=== PATIENT | male | born 1970 | race Caucasian/White ===

== ENCOUNTER 2017-03-24 14:29 | Inpatient (IN) | payer OTHER ==
[2017-03-24 16:11] VITALS: BMI 23.6
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
[2017-03-24] MEDS ORDERED: MENTHOL/PHENOL 1 EACH UD MM PRN (18:39)
[2017-03-24] MEDS ORDERED: MAGNESIUM CITRATE 300 ML BOTTLE PO PRN (18:39)
[2017-03-24] MEDS ORDERED: LOPERAMIDE HCL 2 MG CAPSULE PO PRN (18:39)
[2017-03-24] MEDS ORDERED: P-EPHED 60MG/TRIPROLIDI 2.5MG TABLET PO PRN (18:39)
[2017-03-24] MEDS ORDERED: ACETAMINOPHEN 325 MG TABLET (FP) PO PRN (18:39)
[2017-03-24] MEDS ORDERED: MAG HYDROX/AL HYDROX/SIMETH 30 ML UNIT-DOSE CUP PO PRN (18:39)
[2017-03-24] MEDS ORDERED: guaiFENesin/D-METHORPHAN HB 10 ML UNIT-DOSE CUPS PO PRN (18:39)
[2017-03-24] MEDS ORDERED: MAGNESIUM HYDROX 2400MG/30ML ORAL SUSPENSION 30 ML CUP PO PRN (18:39)
[2017-03-24] MEDS ORDERED: NICOTINE 21 MG/24 HOURS TOPICAL PATCH TD PRN (18:39)
[2017-03-24] MEDS ORDERED: ALBUTEROL SO4 18 GM HFA INHALER IH PRN (18:42)
[2017-03-24] MEDS ORDERED: diazePAM 5 MG TABLET PO ONE (19:15)
[2017-03-24] MEDS: METHYL SALICYLATE/MENTHOL OINT 30 GM TUBE TP SCH ×2 (19:38→22:05)
[2017-03-24] MEDS: diazePAM 5 MG TABLET PO SCH (22:04)
[2017-03-24] MEDS: THIAMINE HCL 100 MG TABLET (FP) PO SCH (22:04)
[2017-03-24] MEDS: BUPRENORPHINE/NALOXONE 8 MG/2 MG FILM PACKET SL SCH (22:04)
[2017-03-24] MEDS: CYCLOBENZAPRINE HCL 10 MG TABLET (FP) PO PRN (22:04)
[2017-03-24] MEDS: IBUPROFEN 400 MG TABLET (FP) PO PRN (22:10)
[2017-03-24] MEDS: NICOTINE POLACRILEX 4 MG GUM BC PRN (23:34)
[2017-03-25] MEDS: diazePAM 5 MG TABLET PO PRN ×4 (00:46→17:17)
[2017-03-25 01:59] LABS: URINE APPEARANCE SLCLOUDY; URINE BILIRUBIN NEGATIVE (NEGATIVE); URINE BLOOD NEGATIVE (NEGATIVE); URINE COLOR YELLOW; URINE GLUCOSE (UA) NEGATIVE (NEGATIVE); URINE KETONE NEGATIVE (NEGATIVE); URINE NITRITE NEGATIVE (NEGATIVE); URINE PROTEIN NEGATIVE (NEGATIVE); URINE UROBILINOGEN NEGATIVE mg/dL (0.2-1.0)
[2017-03-25] MEDS: NICOTINE POLACRILEX 4 MG GUM BC PRN ×2 (05:35→12:32)
[2017-03-25] MEDS: diazePAM 5 MG TABLET PO SCH ×3 (05:35→22:07)
[2017-03-25] MEDS: IBUPROFEN 400 MG TABLET (FP) PO PRN (05:37)
[2017-03-25] MEDS: CYCLOBENZAPRINE HCL 10 MG TABLET (FP) PO PRN ×2 (05:37→13:04)
[2017-03-25 10:03] LABS: MCH 30.2 pg (25.7-33.7); MCHC 33.3 g/dl (32.0-35.9); MEAN CELL VOLUME 90.6 fl (80-96); MEAN PLT VOLUME 9.6 fl (7.5-11.1); PLATELET COUNT 254 K/MM3 (134-434); RDW 13.9 % (11.9-15.9); WHITE BLOOD COUNT 7.7 K/mm3 (4.0-10.0)
[2017-03-25] MEDS: PRENATAL VITAMINS W/ FOLIC ACID TABLET (FP) PO SCH (10:10)
[2017-03-25] MEDS: LIDOCAINE 5% TOPICAL PATCH TP SCH (10:10)
[2017-03-25] MEDS: BUPRENORPHINE/NALOXONE 8 MG/2 MG FILM PACKET SL SCH ×2 (10:10→22:07)
[2017-03-25] MEDS: METHYL SALICYLATE/MENTHOL OINT 30 GM TUBE TP SCH ×2 (10:10→22:08)
--- NOTE | 2017-03-25 10:35 | PN ---
S CIWA - CIWA Score Nausea/Vomitin Muscle Tremors: 3 Anxiety: 3 Agitation: 3 Paroxysmal Sweats: 1-Minimal Palms Moist Orientation: 0-Oriented Tacttile Disturbances: 1-Very Mild Itch/Numbness Auditory Disturbances: 1-Very Mild Visual Disturbances: 0-None Headache: 2-Mild CIWA-Ar Total Score: 17 BHS Progress Note (SOAP) Subjective: alert,irritable,anxious,interrupted sleep,tremor,pain in the body and back Objective: 03/25/17 10:32 Vital Signs Temperature 96.4 F L 03/25/17 05:59 Pulse Rate 100 H 03/25/17 05:59 Respiratory Rate 20 03/25/17 05:59 Blood Pressure 150/78 03/25/17 05:59 O2 Sat by Pulse Oximetry (%) ekg nsr,normal ecg 03/25/17 10:33 Laboratory Last Values WBC 7.7 K/mm3 (4.0-10.0) D 03/25/17 07:45 RBC 4.41 M/mm3 (4.00-5.60) 03/25/17 07:45 Hgb 13.3 GM/dL (11.7-16.9) 03/25/17 07:45 Hct 40.0 % (35.4-49) 03/25/17 07:45 MCV 90.6 fl (80-96) 03/25/17 07:45 MCH 30.2 pg (25.7-33.7) 03/25/17 07:45 MCHC 33.3 g/dl (32.0-35.9) 03/25/17 07:45 RDW 13.9 % (11.9-15.9) 03/25/17 07:45 Plt Count 254 K/MM3 (134-434) D 03/25/17 07:45 MPV 9.6 fl (7.5-11.1) 03/25/17 07:45 Urine Color Yellow 03/24/17 18:51 Urine Appearance Slcloudy 03/24/17 18:51 Urine pH 5.0 (5.0-8.0) D 03/24/17 18:51 Ur Specific [place] 1.025 (1.001-1.035) 03/24/17 18:51 Urine Protein Negative (NEGATIVE) 03/24/17 18:51 Urine Glucose (UA) Negative (NEGATIVE) 03/24/17 18:51 Urine Ketones Negative (NEGATIVE) 03/24/17 18:51 Urine Blood Negative (NEGATIVE) 03/24/17 18:51 Urine Nitrite Negative (NEGATIVE) 03/24/17 18:51 Urine Bilirubin Negative (NEGATIVE) 03/24/17 18:51 Urine Urobilinogen Negative mg/dL (0.2-1.0) 03/24/17 18:51 03/25/17 10:33 labs pending Assessment: 03/25/17 10:34 withdrawal symptom Plan: continue detox
[2017-03-25 10:56] LABS: ALBUMIN 3.7 g/dl (3.4-5.0); ALK PHOS 68 U/L (45-117); ANION GAP 5 (8-16); BILIRUBIN,TOTAL 0.4 mg/dL (0.2-1.0); CALCIUM 8.4 mg/dL (8.5-10.1); CO2 28 mmol/L (21-32); CREATININE 0.7 mg/dL (0.7-1.3); GLUCOSE,RANDOM 97 mg/dL (74-106); SGOT/AST 16 U/L (15-37); SGPT/ALT 54 U/L (12-78); TOT PROT 7.1 g/dl (6.4-8.2)
[2017-03-25 11:44] LABS: URINE LEUK ESTERASE Negative (NEGATIVE)
[2017-03-25] MEDS: IBUPROFEN 600 MG TABLET (FP) PO PRN ×2 (13:04→20:28)
--- NOTE | 2017-03-25 13:34 | CONSULT ---
[facility] Psychiatric Consult - Data Date of interview: 03/25/17 Admission source: [facility] Identifying data: One of multiple admissions to [facility] for this 45 y/o male seeking detox treatment on for alcohol,opioid and cocaine dependence.Patient is single without children,homeless,unemployed and supported on SSI/SSD benefits. Substance Abuse History: Confirmed by patient in this session.[facility] report : Smoking history: Current every day smoker. Have you smoked in the past 12 months: Yes. Aproximately how many cigarettes per day: 20. Cigars Per Day: 0. Hx Chewing Tobacco Use: No. Initiated information on smoking cessation: Yes. 'Breaking Loose' booklet given: 03/24/17. - Substance & Tx. History. Hx Alcohol Use: Yes. Hx Substance Use: Yes. Substance Use Type: Alcohol, Cocaine. Hx Substance Use Treatment: Yes (). - Substances Abused. Alcohol. Route: Oral. Frequency: Daily. Amount used: 2 pints vodka. Age of first use: 14. Date of Last Use: 03/24/17. Cocaine. Route: Smoking. Frequency: Daily. Amount used: 100$. Age of first use: 29. Date of Last Use: 03/22/17 Medical History: Hepatitis C,bronchial asthma,seizures (withdrawal-related) and a history of testicular cancer (underwent an orchiectomy in 2007). Psychiatric History: Onset of psychiatric disturbances (2007).History of multiple psychiatric hospitalizations ([facility]).Diagnosed with Schizoaffective Disorder.Chronically non adherent to aftercare.Patient reports a preference for emergency room settings for medications refills.No longer on seroquel (patient stopped on his own) due to intolerable oversedation.Sees the staff psychiatrist at the custodial in [place] for medication management (xanax,suboxone,ambien).Mr Gil denies history of suicide attempts. Physical/Sexual Abuse/Trauma History: No reported history of abuse. Additional Comment: Urine Drug Screen Results: RICKIE-Cocaine.Noted. Mental Status Exam - Mental Status Exam Alert and Oriented to: Time, Place, Person Cognitive Function: Good Patient Appearance: Well Groomed Mood: Hopeful, Euthymic Affect: Appropriate, Normal Range Patient Behavior: Cooperative Speech Pattern: Clear Voice Loudness: Normal Thought Process: Goal Oriented Thought Disorder: Not Present Hallucinations: Denies Suicidal Ideation: Denies Homicidal Ideation: Denies Insight/Judgement: Poor Sleep: Poorly, Difficulty falling asleep Appetite: Good Muscle strength/Tone: Rigidity Gait/Station: Normal Psychiatric Findings - Problem List ([place] 1, 2,3) (1) Alcohol dependence with uncomplicated withdrawal Current Visit: Yes Status: Acute (2) Opioid dependence with withdrawal Current Visit: No Status: Acute (3) Cocaine dependence Current Visit: Yes Status: Acute (4) Nicotine dependence Current Visit: Yes Status: Acute Qualifiers: Nicotine product type: cigarettes Substance use status: in withdrawal Qualified Code(s): F17.213 - Nicotine dependence, cigarettes, with withdrawal Comment: . (5) Drug-induced mood disorder Current Visit: Yes Status: Acute (6) Insomnia Current Visit: Yes Status: Acute - Initial Treatment Plan Initial Treatment Plan: Psychoeducation.Detoxification.Sleep hygiene.Medications : remeron 7.5 mg po hs + ambien 10 mg po hs prn.Side effects /benefits of both drugs are discussed with the patient.He agrees with this careplan.Observation.
[2017-03-25] MEDS ORDERED: LIDOCAINE PATCH REMOVAL MC SCH (22:00)
[2017-03-25] MEDS ORDERED: MIRTAZAPINE 15 MG TABLET (FP) PO SCH (22:00)
[2017-03-25] MEDS ORDERED: ZOLPIDEM TARTRATE 5 MG TABLET PO PRN (22:00)
[2017-03-25] MEDS: THIAMINE HCL 100 MG TABLET (FP) PO SCH (22:08)
[2017-03-26] MEDS: IBUPROFEN 600 MG TABLET (FP) PO PRN (02:27)
[2017-03-26] MEDS: CYCLOBENZAPRINE HCL 10 MG TABLET (FP) PO PRN ×2 (02:27→10:13)
[2017-03-26] MEDS: diazePAM 5 MG TABLET PO PRN ×2 (02:29→06:38)
--- NOTE | 2017-03-26 08:28 | PN ---
S CIWA - CIWA Score Nausea/Vomitin Muscle Tremors: 3 Anxiety: 3 Agitation: 2 Paroxysmal Sweats: 1-Minimal Palms Moist Orientation: 0-Oriented Tacttile Disturbances: 1-Very Mild Itch/Numbness Auditory Disturbances: 1-Very Mild Visual Disturbances: 1-Very Mild Sensitivity Headache: 2-Mild CIWA-Ar Total Score: 17 BHS Progress Note (SOAP) Subjective: alert,irritable,anxious,interrupted sleep,tremor,pain in the body and back Objective: 03/26/17 08:28 Vital Signs Temperature 97.3 F L 03/26/17 05:51 Pulse Rate 71 03/26/17 05:51 Respiratory Rate 18 03/26/17 05:51 Blood Pressure 113/78 03/26/17 05:51 O2 Sat by Pulse Oximetry (%) 03/26/17 08:30 Laboratory Last Values WBC 7.7 K/mm3 (4.0-10.0) D 03/25/17 07:45 RBC 4.41 M/mm3 (4.00-5.60) 03/25/17 07:45 Hgb 13.3 GM/dL (11.7-16.9) 03/25/17 07:45 Hct 40.0 % (35.4-49) 03/25/17 07:45 MCV 90.6 fl (80-96) 03/25/17 07:45 MCH 30.2 pg (25.7-33.7) 03/25/17 07:45 MCHC 33.3 g/dl (32.0-35.9) 03/25/17 07:45 RDW 13.9 % (11.9-15.9) 03/25/17 07:45 Plt Count 254 K/MM3 (134-434) D 03/25/17 07:45 MPV 9.6 fl (7.5-11.1) 03/25/17 07:45 Manual Slide Review No Result Required. 03/25/17 07:45 Sodium 139 mmol/L (136-145) 03/25/17 07:45 Potassium 4.4 mmol/L (3.5-5.1) 03/25/17 07:45 Chloride 106 mmol/L (98-107) 03/25/17 07:45 Carbon Dioxide 28 mmol/L (21-32) 03/25/17 07:45 Anion Gap 5 (8-16) L 03/25/17 07:45 BUN 22 mg/dL (7-18) H 03/25/17 07:45 Creatinine 0.7 mg/dL (0.7-1.3) 03/25/17 07:45 Creat Clearance w eGFR > 60 (>60) 03/25/17 07:45 Random Glucose 97 mg/dL (74-106) 03/25/17 07:45 Calcium 8.4 mg/dL (8.5-10.1) L 03/25/17 07:45 Total Bilirubin 0.4 mg/dL (0.2-1.0) 03/25/17 07:45 AST 16 U/L (15-37) D 03/25/17 07:45 ALT 54 U/L (12-78) D 03/25/17 07:45 Alkaline Phosphatase 68 U/L (45-117) 03/25/17 07:45 Total Protein 7.1 g/dl (6.4-8.2) 03/25/17 07:45 Albumin 3.7 g/dl (3.4-5.0) 03/25/17 07:45 Urine Color Yellow 03/24/17 18:51 Urine Appearance Slcloudy 03/24/17 18:51 Urine pH 5.0 (5.0-8.0) D 03/24/17 18:51 Ur Specific [place] 1.025 (1.001-1.035) 03/24/17 18:51 Urine Protein Negative (NEGATIVE) 03/24/17 18:51 Urine Glucose (UA) Negative (NEGATIVE) 03/24/17 18:51 Urine Ketones Negative (NEGATIVE) 03/24/17 18:51 Urine Blood Negative (NEGATIVE) 03/24/17 18:51 Urine Nitrite Negative (NEGATIVE) 03/24/17 18:51 Urine Bilirubin Negative (NEGATIVE) 03/24/17 18:51 Urine Urobilinogen Negative mg/dL (0.2-1.0) 03/24/17 18:51 Ur Leukocyte Esterase Negative (NEGATIVE) 03/24/17 18:51 RPR Titer Nonreactive (NONREACTIVE) 03/25/17 07:45 Assessment: 03/26/17 08:31 withdrawal symptom Plan: continue detox
[2017-03-26] MEDS ORDERED: hydrOXYzine PAMOATE 50 MG CAPSULE (FP) PO PRN (08:53)
[2017-03-26 09:29] VITALS: BP 129/82; PULSE 102; TEMP 96
[2017-03-26] MEDS ORDERED: diazePAM 5 MG TABLET PO SCH (10:00)
[2017-03-26] MEDS: METHYL SALICYLATE/MENTHOL OINT 30 GM TUBE TP SCH (10:00)
[2017-03-26] MEDS: LIDOCAINE 5% TOPICAL PATCH TP SCH (10:00)
[2017-03-26] MEDS: PRENATAL VITAMINS W/ FOLIC ACID TABLET (FP) PO SCH (10:09)
[2017-03-26] MEDS: BUPRENORPHINE/NALOXONE 8 MG/2 MG FILM PACKET SL SCH (10:09)
--- NOTE | 2017-03-26 11:31 | PN ---
S Progress Note Note: patient did not want to complete treatment,seen by counselor,signed release ama
--- NOTE | 2017-03-26 11:36 | DS ---
[facility] Detox Discharge Summary Admission Date: 03/24/17 Discharge Date: 03/26/17 - History Present History: Alcohol Dependence Additional Comments: patient did not want to complete treatment,seen by counselor,signed release ama Pertinent Past History: asthma chronic back pain hepatitis c weight loss encounter suboxone maintenance therapy - Physical Exam Results Vital Signs: Vital Signs Temperature 96 F L 03/26/17 09:29 Pulse Rate 102 H 03/26/17 09:29 Respiratory Rate 16 03/26/17 09:29 Blood Pressure 129/82 03/26/17 09:29 O2 Sat by Pulse Oximetry (%) Pertinent Admission Physical Exam Findings: withdrawal finding - Medication Discharge Medications: Ambulatory Orders Quetiapine Fumarate [Seroquel -] 300 mg PO HS 02/24/16 Albuterol Sulfate Inhaler - [Ventolin HFA Inhaler -] 2 inh IH Q4H PRN #1 inhaler 04/22/16 Bupropion HCl [Wellbutrin Xl -] 150 mg PO DAILY #30 tab.sr.24h 04/22/16 Mirtazapine [Remeron -] 30 mg PO HS #30 tablet 04/22/16 Buprenorphine HCl/Naloxone HCl [Suboxone 8 mg-2 mg Sl Tablets] 1 each SL BID Buprenorphine/Naloxone [Suboxone 8Mg/2Mg Sl Film -] 1 each SL BID 03/24/17 - Diagnosis (1) Alcohol dependence with uncomplicated withdrawal Current Visit: Yes Status: Acute (2) Nicotine dependence Current Visit: Yes Status: Acute Qualifiers: Nicotine product type: cigarettes Substance use status: in withdrawal Qualified Code(s): F17.213 - Nicotine dependence, cigarettes, with withdrawal (3) Weight loss Current Visit: Yes Status: Acute (4) Asthma Current Visit: Yes Status: Chronic Qualifiers: Asthma severity: mild Asthma persistence: intermittent Asthma complication type: with status asthmaticus Qualified Code(s): J45.22 - Mild intermittent asthma with status asthmaticus (5) Chronic back pain Current Visit: Yes Status: Chronic Qualifiers: Back pain location: low back pain Back pain laterality: midline Sciatica presence: without sciatica Qualified Code(s): M54.5 - Low back pain; G89.29 - Other chronic pain; G89.29 - Other chronic pain (6) Encounter for monitoring Suboxone maintenance therapy Current Visit: Yes Status: Chronic (7) Hepatitis C Current Visit: Yes Status: Chronic Qualifiers: Viral hepatitis chronicity: chronic Hepatic coma status: without hepatic coma Qualified Code(s): B18.2 - Chronic viral hepatitis C - AMA Did Patient Leave Against Medical Advice: Yes
--- NOTE | 2017-03-28 01:04 | EKG ---
Test Reason : Blood Pressure : / mmHG Vent. Rate : 082 BPM Atrial Rate : 082 BPM P-R Int : 140 ms QRS Dur : 084 ms QT Int : 370 ms P-R-T Axes : 059 033 044 degrees QTc Int : 432 ms NORMAL SINUS RHYTHM NORMAL ECG NO PREVIOUS ECGS AVAILABLE Confirmed by EUGENIO NEIL MD ([id number]) on 03/28/2017 1:04:20 AM Referred By: Confirmed By:EUGENIO NEIL MD
[2017-03-28] MEDS ORDERED: diazePAM 5 MG TABLET PO SCH (10:00)
== END 2017-03-26 11:24 | disposition left against medical advice (07) | DRG 770 ==
LOC: YASAS 14:29 → Y6N 18:39
PROVIDERS: ADMIT Internal Medicine; ATTEND Internal Medicine
PROC: HZ2ZZZZ Detoxification Services for Substance Abuse Treatment (ICD-10-PCS; principal; 2017-03-24)
DX: F11.23 Opioid dependence with withdrawal (principal); F13.230 Sedative, hypnotic or anxiolytic dependence with withdrawal, uncomplicated; F10.230 Alcohol dependence with withdrawal, uncomplicated; F14.20 Cocaine dependence, uncomplicated; F17.210 Nicotine dependence, cigarettes, uncomplicated; F19.24 Other psychoactive substance dependence with psychoactive substance-induced mood disorder; F25.9 Schizoaffective disorder, unspecified; G47.00 Insomnia, unspecified; M54.5 Low back pain; G89.29 Other chronic pain; B35.3 Tinea pedis; R63.4 Abnormal weight loss; Z68.23 Body mass index [BMI] 23.0-23.9, adult; Z51.81 Encounter for therapeutic drug level monitoring; J45.909 Unspecified asthma, uncomplicated; F19.20 Other psychoactive substance dependence, uncomplicated; Z85.47 Personal history of malignant neoplasm of testis; Z90.79 Acquired absence of other genital organ(s)
CPT/HCPCS: 36415; 80053; 81003; 85027; 86593; 93005; 93010

== ENCOUNTER 2018-10-01 17:02 | Inpatient (IN) | payer OTHER ==
[2018-10-01 20:50] VITALS: BMI 20.5
--- NOTE | 2018-10-01 22:29 | HP ---
COWS - Scale Resting Pulse: 0= [place] 80 or Below Sweatin=Flushed/Facial Moisture Restless Observation: 1= Difficult to Sit Still Pupil Size: 1= Pupils >than Normal Bone or Joint Aches: 2= Severe Diffuse Aches Runny Nose/ Eye Tearin= Runny Nose/Eyes GI Upset > 30mins: 2= Nausea/Diarrhea Tremor Observation: 2= Slight Tremor Visible Yawning Observation: 1= 1-2x During Session Anxiety or Irritability: 1=Feels Anxious/Irritable Goose Flesh Skin: 0=Smooth Skin COWS Score: 14 CIWA Score Nausea/Vomitin Muscle Tremors: 3 Anxiety: 2 Agitation: 2 Paroxysmal Sweats: 2 Orientation: 0-Oriented Tacttile Disturbances: 2-Mild Itch/Numbness/Burn Auditory Disturbances: 2-Mild Harshness/Frighten Visual Disturbances: 2-Mild Sensitivity Headache: 2-Mild CIWA-Ar Total Score: 20 - Admission Criteria OASAS Guidelines: Admission for Medically Managed Detox: Requires at least one of the followin. CIWA greater than 12 2. Seizures within the past 24 hours 3. Delirium tremens within the past 24 hours 4. Hallucinations within the past 24 hours 5. Acute intervention needed for co occurring medical disorder 6. Acute intervention needed for co occurring psychiatric disorder 7. Severe withdrawal that cannot be handled at a lower level of care (continued vomiting, continued diarrhea, abnormal vital signs) requiring intravenous medication and/or fluids 8. Ad[facility] Chief Complaint: DEPENDENT ON HEROIN, ETOH AND XANAX Allergies/Adverse Reactions: Allergies Allergy/AdvReac Type Severity Reaction Status Date / Time chlordiazepoxide HCl Allergy Severe Rash Verified 03/24/17 17:53 [From Librium] haloperidol [From Haldol] AdvReac Severe Swelling Verified 03/24/17 17:53 haloperidol lactate AdvReac Severe Swelling Verified 03/24/17 17:53 [From Haldol] ziprasidone HCl [From Geodon] AdvReac Severe Swelling Verified 03/24/17 17:53 ziprasidone mesylate AdvReac Severe Swelling Verified 03/24/17 17:53 [From Geodon] History of Present Illness: THE PT. IS REQUESTING ADMISSION TO THE DETOX UNIT AND CAME FOR MEDICAL CLEARANCE. Exam Limitations: No Limitations - Ebola screening Have you traveled outside of the country in the last 21 days: No (N) Have you had contact with anyone from an Ebola affected area: No Have you been sick,other than usual withdrawal symptoms: No Do you have a fever: No - Review of Systems Constitutional: See HPI, Loss of Appetite, Malaise, Weakness, Unexplained wgt Loss EENT: reports: See HPI Respiratory: reports: See HPI, SOB with Exertion Cardiac: reports: See HPI, Syncope GI: reports: See HPI, Nausea, Poor Appetite, Indigestion, Abdominal cramping : reports: See HPI Musculoskeletal: reports: See HPI, Back Pain, Muscle Pain Integumentary: reports: See HPI, Flushing, Sweating Neuro: reports: See HPI, Headache, Tremors, Weakness Endocrine: reports: See HPI Hematology: reports: See HPI Psychiatric: reports: Judgement Intact, Orientated x3, Anxious, Depressed Patient History - Patient Medical History Hx Anemia: No Hx Asthma: Yes Hx Chronic Obstructive Pulmonary Disease (COPD): No Hx Cancer: Yes (testicular CA. 2004) Hx Cardiac Disorders: No Hx Congestive Heart Failure: No Hx Hypertension: No Hx Hypercholesterolemia: No Hx Pacemaker: No HX Cerebrovascular Accident: No Hx Seizures: Yes (R/T ALCOHOL LAST 11/2015) Hx Dementia: No Hx Diabetes: No Hx Gastrointestinal Disorders: No Hx Liver Disease: Yes (untreated hep C) Hx Genitourinary Disorders: No Hx Sexually Transmitted Disorders: No Hx Renal Disease (ESRD): No Hx Thyroid Disease: No Hx Human Immunodeficiency Virus (HIV): No Hx Hepatitis C: Yes (untreated) Hx Depression: Yes (AND ANXIETY) Hx Suicide Attempt: No Hx Bipolar Disorder: No Hx Schizophrenia: No - Patient Surgical History Past Surgical History: Yes Hx Neurologic Surgery: No Hx Cataract Extraction: No Hx Cardiac Surgery: No Hx Lung Surgery: No Hx Breast Surgery: No Hx Breast Biopsy: No Hx Abdominal Surgery: No Hx Appendectomy: No Hx Cholecystectomy: No Hx Genitourinary Surgery: Yes (testicular CA 2003 R ORCHIECTOMY) Hx Section: No Hx Orthopedic Surgery: No Anesthesia Reaction: No - PPD History Date: 04/17/16 Results: 0 MM - Smoking Cessation Smoking history: Current every day smoker Have you smoked in the past 12 months: Yes Aproximately how many cigarettes per day: 20 Cigars Per Day: 0 Hx Chewing Tobacco Use: No Initiated information on smoking cessation: Yes 'Breaking Loose' booklet given: 10/01/18 - Substances abused Alcohol Substance route: Oral Frequency: Daily Amount used: 12 (12oz) cans of beer/day Age of first use: 16 Date of last use: 10/01/18 Heroin Substance route: Injection Frequency: Daily Amount used: 10bags/day Age of first use: 29 Date of last use: 10/01/18 Alprazolam (Xanax) Substance route: Oral Frequency: Daily Amount used: 5-6 MGS./D Age of first use: 29 Date of last use: 10/01/18 Family Disease History - Family Disease History Family Disease History: [place]: Father ( h/o ETOH/), Mother ( FROM [place]. OF THE LUNGS), Other: Father, Mother Admission Physical Exam [facility] - Vital Signs Vital Signs: Vital Signs - 24 hr 10/01/18 10/01/18 20:47 21:17 Temperature 98.1 F 98.1 F Pulse Rate 78 78 Respiratory 18 18 Rate Blood Pressure 117/62 117/62 - Physical General Appearance: Yes: No Apparent Distress, Appropriately Dressed, Thin, Tremorous, Sweating, Anxious HEENTM: Yes: Hearing grossly Normal, Normocephalic, Normal Voice, [place], Pharynx Normal Respiratory: Yes: Chest Non-Tender, Lungs Clear, Normal Breath Sounds, No Respiratory Distress, No Accessory Muscle Use Neck: Yes: No masses,lesions,Nodules, Supple, Trachea in good position Breast: Yes: Breast Exam Deferred, Axillae without masses Cardiology: Yes: Regular Rhythm, Regular Rate, S1, S2 Abdominal: Yes: Normal Bowel Sounds, Non Tender, Flat, Soft Back: Yes: Normal Inspection, Decreased Range of Motion Musculoskeletal: Yes: full range of Motion, Gait Steady, Pelvis Stable, Back pain, Muscle weakness Extremities: Yes: Normal Capillary Refill, Normal Range of Motion, Non-Tender, Tremors Neurological: Yes: bag printer II-XII NML intact, Fully Oriented, Alert, Motor Strength 5/5 Integumentary: Yes: Normal Color, Warm, Moist, Track Bach Lymphatic: Yes: Within Normal Limits - Diagnostic (1) Anxiety and depression Current Visit: Yes Status: Chronic (2) Alcohol dependence with uncomplicated withdrawal Current Visit: No Status: Chronic (3) Nicotine dependence Current Visit: No Status: Chronic Qualifiers: Nicotine product type: cigarettes Substance use status: in withdrawal Qualified Code(s): F17.213 - Nicotine dependence, cigarettes, with withdrawal Comment: . (4) Opioid dependence with withdrawal Current Visit: No Status: Chronic (5) Sedative, hypnotic or anxiolytic dependence with withdrawal, uncomplicated Current Visit: No Status: Chronic (6) Weight loss Current Visit: No Status: Acute (7) Asthma Current Visit: No Status: Chronic Qualifiers: Asthma severity: mild Asthma persistence: intermittent Asthma complication type: with status asthmaticus Qualified Code(s): J45.22 - Mild intermittent asthma with status asthmaticus Comment: inhaler with nebulizer. (8) Chronic back pain Current Visit: No Status: Chronic Qualifiers: Back pain location: low back pain Back pain laterality: midline Sciatica presence: without sciatica Qualified Code(s): M54.5 - Low back pain; G89.29 - Other chronic pain; G89.29 - Other chronic pain (9) Hepatitis C Current Visit: No Status: Chronic Qualifiers: Viral hepatitis chronicity: chronic Hepatic coma status: without hepatic coma Qualified Code(s): B18.2 - Chronic viral hepatitis C Comment: encourage treatment. Cleared for Admission [facility] - Detox or Rehab Detox Regimen/Protocol: Methadone/Valium Breathalyzer - Breathalyzer Breathalyzer: 0 Urine Drug Screen - Test Device Lot number: [id number] Expiration date: 06/28/20 - Control Is test valid?: Yes - Results Drug screen NEGATIVE: No Urine drug screen results: RICKIE-Cocaine, FEN-Fentanyl, BZO-Benzodiazepines, BUP- Suboxone Inpatient Rehab Admission - Rehab Decision to Admit Inpatient rehab admission?: No
[2018-10-01] MEDS ORDERED: ALBUTEROL SO4 8 GM HFA INHALER IH PRN (22:33)
[2018-10-01] MEDS ORDERED: METHOCARBAMOL 500 MG TABLET PO PRN (22:34)
[2018-10-01] MEDS ORDERED: MENTHOL/PHENOL 1 EACH UD MM PRN (22:34)
[2018-10-01] MEDS ORDERED: NICOTINE POLACRILEX 4 MG GUM BUC PRN (22:34)
[2018-10-01] MEDS ORDERED: ACETAMINOPHEN 325 MG TABLET (FP) PO PRN ×2 (22:34)
[2018-10-01] MEDS ORDERED: MAGNESIUM HYDROX 2400MG/30ML ORAL SUSPENSION 30 ML CUP PO PRN (22:34)
[2018-10-01] MEDS ORDERED: BISMUTH SUBSALICYLATE 524 MG/30 ML UD PO PRN (22:34)
[2018-10-01] MEDS ORDERED: MAG HYDROX/AL HYDROX/SIMETH 30 ML UNIT-DOSE CUP PO PRN (22:34)
[2018-10-01] MEDS ORDERED: MAGNESIUM CITRATE 300 ML BOTTLE PO PRN (22:34)
[2018-10-01] MEDS ORDERED: hydrOXYzine PAMOATE 25 MG CAPSULE (FP) PO PRN (22:34)
[2018-10-01] MEDS ORDERED: cloNIDine HCL 0.1 MG TABLET PO PRN (22:36)
[2018-10-01] MEDS ORDERED: METHADONE HCL 10 MG TABLET (FOR DETOX USE ONLY) PO ONE (23:00)
[2018-10-01] MEDS: diazePAM 5 MG TABLET PO SCH (23:54)
[2018-10-01] MEDS: IBUPROFEN 400 MG TABLET (FP) PO PRN (23:56)
[2018-10-02] MEDS: MELATONIN 5 MG TABLETS PO PRN ×2 (00:54→21:15)
[2018-10-02] MEDS: diazePAM 5 MG TABLET PO PRN ×4 (00:57→17:10)
[2018-10-02] MEDS: diazePAM 5 MG TABLET PO SCH ×3 (05:38→21:15)
[2018-10-02] MEDS: IBUPROFEN 400 MG TABLET (FP) PO PRN (07:20)
[2018-10-02] MEDS ORDERED: TRIMETHOBENZAMIDE HCL 200MG/2ML INJ IM PRN (09:40)
[2018-10-02] MEDS ORDERED: NAPROXEN 500 MG TABLET (FP) PO PRN (09:41)
[2018-10-02] MEDS ORDERED: METHADONE DETOX 10 MG/1 ML [20ML VIAL] IM ONE (10:00)
[2018-10-02] MEDS ORDERED: METHADONE HCL 5 MG TABLET (FOR DETOX USE ONLY) PO ONE (10:00)
[2018-10-02 10:38] LABS: ALBUMIN 3.4 g/dl (3.4-5.0); BILIRUBIN,TOTAL 0.2 mg/dL (0.2-1); CREATININE 0.7 mg/dL (0.55-1.3); TOT PROT 6.6 g/dl (6.4-8.2)
[2018-10-02 10:39] LABS: HEMATOCRIT 38.6 % (35.4-49); HEMOGLOBIN 12.9 GM/dL (11.7-16.9); MCHC 33.3 g/dl (32.0-35.9); MEAN PLT VOLUME 9.7 fl (7.5-11.1); PLATELET COUNT 213 K/MM3 (134-434); RBC 4.44 M/mm3 (4.00-5.60); RDW 17.5 % (11.9-15.9); WHITE BLOOD COUNT 5.4 K/mm3 (4.0-10.0)
[2018-10-02] MEDS: NICOTINE 21 MG/24 HOURS TOPICAL PATCH TD SCH (10:42)
[2018-10-02] MEDS: PRENATAL VITAMINS W/ FOLIC ACID TABLET (FP) PO SCH (10:42)
[2018-10-02] MEDS: CYCLOBENZAPRINE HCL 10 MG TABLET (FP) PO PRN ×2 (10:42→21:16)
--- NOTE | 2018-10-02 11:32 | CONSULT ---
[facility] Psychiatric Consult - Data Date of interview: 10/02/18 Admission source: [facility] Identifying data: Readmission to [facility] for this 48 y/o male self- referred for detoxification (alcohol, opioid, cocaine). Examined at [address] [place] [address]. Patient is single without children, homeless (nursing home), unemployed and supported on SSI/SSD benefits. Substance Abuse History: Discussed in session. [facility] report is confirmed by the patient : Smoking history: Current every day smoker. Have you smoked in the past 12 months: Yes. Aproximately how many cigarettes per day: 20. Cigars Per Day: 0. Hx Chewing Tobacco Use: No. Initiated information on smoking cessation : Yes. 'Breaking Loose' booklet given: 10/01/18. - Substances abused. Alcohol. Substance route: Oral. Frequency: Daily. Amount used: 12 (12oz) cans of beer/day. Age of first use: 16. Date of last use: 10/01/18. Heroin. Substance route: Injection. Frequency: Daily. Amount used: 10bags/ day. Age of first use: 29. Date of last use: 10/01/18. Alprazolam (Xanax) . Substance route: Oral. Frequency: Daily. Amount used: 5-6 MGS./D. Age of first use: 29. Date of last use: 10/01/18 Medical History: Remarkable for hepatitis C, bronchial asthma, seizures ( withdrawal-related) and a history of testicular cancer (underwent an orchiectomy in 2007). Psychiatric History: Patient reports the onset of psychiatric disturbances around 2007. Presents with a history of multiple psychiatric hospitalizations ( [facility], [facility], [facility]). Diagnosed with Schizoaffective Disorder. Mr Gil states that he gets scripts, at the [facility], from two physicians (the visiting psychiatrist at his residential facility + a primary care doctor from whom he gets xanax and suboxone). Patient declares his medications as wellbutrin XL 300 mg/day + seroquel 400 mg/hs + gabapentin 600 mg/tid. He indicates that he last took these drugs prior to this [facility] visit. Patient admits to a history of one suicide attempt via overdose with drugs/medications about 3- 4 years ago. Physical/Sexual Abuse/Trauma History: Patient denies. Additional Comment: Urine drug screen results: RICKIE-Cocaine, FEN-Fentanyl, BZO- Benzodiazepines, BUP-Suboxone. Noted. Mental Status Exam - Mental Status Exam Alert and Oriented to: Time, Place, Person Cognitive Function: Good Patient Appearance: Well Groomed Mood: Nervous, Anxious Affect: Appropriate, Mood Congruent Patient Behavior: Fatigued, Cooperative Speech Pattern: Clear, Appropriate Voice Loudness: Normal Thought Process: Goal Oriented Thought Disorder: Not Present Hallucinations: Denies Suicidal Ideation: Denies Homicidal Ideation: Denies Insight/Judgement: Poor Sleep: Poorly, Difficulty falling asleep Appetite: Good Muscle strength/Tone: Normal Gait/Station: Normal Psychiatric Findings - Problem List ([place] 1, 2,3) (1) Alcohol dependence with uncomplicated withdrawal Current Visit: Yes Status: Acute (2) Opioid dependence with withdrawal Current Visit: Yes Status: Acute (3) Sedative, hypnotic or anxiolytic dependence with withdrawal, uncomplicated Current Visit: Yes Status: Acute (4) Cocaine dependence Current Visit: Yes Status: Chronic (5) Nicotine dependence Current Visit: Yes Status: Chronic Qualifiers: Nicotine product type: cigarettes Substance use status: in withdrawal Qualified Code(s): F17.213 - Nicotine dependence, cigarettes, with withdrawal Comment: . (6) Drug-induced mood disorder Current Visit: Yes Status: Chronic (7) Schizoaffective disorder Current Visit: Yes Status: Chronic Comment: According to self-report and records. (8) Insomnia Current Visit: Yes Status: Chronic (9) Non-compliance Current Visit: Yes Status: Chronic Comment: History of non-adherence to aftercare. - Initial Treatment Plan Initial Treatment Plan: Psychoeducation. Records revisited. Sleep hygiene. Seroquel 300 mg po hs + gabapentin 300 mg po tid + wellbutrin XL 150 mg po daily. Ordered. Side effects/benefits of each drug are discussed with the patient. Mr Gil has verbally consented to follow this regimen of care. Observation.
[2018-10-02] MEDS: GABAPENTIN 300 MG CAPSULE (FP) PO SCH ×2 (13:33→21:16)
--- NOTE | 2018-10-02 14:23 | PN ---
S CIWA - CIWA Score Nausea/Vomitin Muscle Tremors: 3 Anxiety: 5 Agitation: 4-Moderately Restless Paroxysmal Sweats: No Perspiration Orientation: 0-Oriented Tacttile Disturbances: 2-Mild Itch/Numbness/Burn Auditory Disturbances: 0-None Visual Disturbances: 2-Mild Sensitivity Headache: 0-None Present CIWA-Ar Total Score: 19 [facility] COWS - Scale Resting Pulse: 0= [place] 80 or Below Sweatin= Chills/Flushing Restless Observation: 1= Difficult to Sit Still Pupil Size: 0= Normal to Room Light Bone or Joint Aches: 2= Severe Diffuse Aches Runny Nose/ Eye Tearin= None GI Upset > 30mins: 2= Nausea/Diarrhea Tremor Observation of Outstretched Hands: 2= Slight Tremor Visible Yawning Observation: 1= 1-2x During Session Anxiety or Irritability: 4=Extreme Anxiety Goose Flesh Skin: 3=Piloerection COWS Score: 16 [facility] Progress Note (SOAP) Subjective: Body Aches, Nausea, Dry Heaving, H/A, Diarrhea, Interrupted sleep, Tremors. Objective: PATIENT A & O X 3, OBSERVED AMBULATING ON UNIT UNASSISTED. IN NO ACUTE DISTRESS. 10/02/18 14:20 Vital Signs Temperature 97.4 F L 10/02/18 13:00 Pulse Rate 66 10/02/18 13:00 Respiratory Rate 20 10/02/18 13:00 Blood Pressure 151/95 10/02/18 13:00 O2 Sat by Pulse Oximetry (%) Laboratory Tests 10/02/18 10/02/18 10/02/18 07:00 07:00 07:00 WBC 5.4 RBC 4.44 Hgb 12.9 Hct 38.6 MCV 87.0 MCH 29.0 MCHC 33.3 RDW 17.5 H Plt Count 213 MPV 9.7 Sodium 139 Potassium 4.0 Chloride 101 Carbon Dioxide 35 H Anion Gap 3 L BUN 17 Creatinine 0.7 Est GFR (CKD-EPI)AfAm 130.25 Est GFR (CKD-EPI)NonAf 112.38 Random Glucose 83 Calcium 9.0 Total Bilirubin 0.2 AST 11 L ALT 16 Alkaline Phosphatase 65 Total Protein 6.6 Albumin 3.4 RPR Titer Nonreactive LABS NOTED. Assessment: 10/02/18 14:21 WITHDRAWAL SYMPTOMS. Plan: CONTINUE DETOX. INCREASE DAILY PO FLUID / WATER INTAKE. PRN PEPTO-BISMOL PO FOR DIARRHEA. PRN TIGAN IM FOR NAUSEA / DRY HEAVING. PRN ROBAXIN PO FOR BODY ACHES / MUSCLS SPASMS. LIDODERM PATCHES FOR RIGHT SHOULDER AND FOR LOWER BACK PAIN.
[2018-10-02] MEDS: LIDOCAINE 5% TOPICAL PATCH TP SCH (15:59)
[2018-10-02] MEDS ORDERED: QUEtiapine FUMARATE 100 MG TABLET (FP) ONE (21:12)
[2018-10-02] MEDS ORDERED: QUEtiapine FUMARATE 200 MG TABLET PO SCH (22:00)
[2018-10-02] MEDS ORDERED: THIAMINE HCL 100 MG TABLET (FP) PO SCH (22:00)
[2018-10-02] MEDS ORDERED: QUEtiapine FUMARATE 300 MG TABLET PO SCH (22:00)
[2018-10-02] MEDS ORDERED: LIDOCAINE PATCH REMOVAL MC SCH (22:00)
[2018-10-03] MEDS: GABAPENTIN 300 MG CAPSULE (FP) PO SCH ×2 (05:41→13:01)
[2018-10-03] MEDS: diazePAM 5 MG TABLET PO PRN ×2 (05:42→13:01)
[2018-10-03] MEDS: PRENATAL VITAMINS W/ FOLIC ACID TABLET (FP) PO SCH (09:47)
[2018-10-03] MEDS: LIDOCAINE 5% TOPICAL PATCH TP SCH (09:48)
[2018-10-03] MEDS: NICOTINE 21 MG/24 HOURS TOPICAL PATCH TD SCH (09:49)
[2018-10-03] MEDS ORDERED: METHADONE HCL 10 MG TABLET (FOR DETOX USE ONLY) PO ONE (10:00)
[2018-10-03] MEDS ORDERED: diazePAM 5 MG TABLET PO SCH (10:00)
--- NOTE | 2018-10-03 12:13 | PN ---
[facility] Progress Note Note: Psychiatry Attending's note : Patient came to office. Wants seroquel back to 400 mg/hs. Agrees to split dose in two divided doses. Seroquel 50 mg po ONE dose NOW. Seroquel 100 mg po daily + 300 mg po hs. Mr Gil consented to this plan of care.
[2018-10-03] MEDS ORDERED: QUEtiapine FUMARATE 50 MG TABLET PO ONE (12:40)
[2018-10-03 13:26] VITALS: BP 126/84; PULSE 97; TEMP 96.9
--- NOTE | 2018-10-03 14:29 | DS ---
[facility] Detox Discharge Summary Admission Date: 10/01/18 Discharge Date: 10/03/18 - History Present History: Alcohol Dependence, Opioid Dependence, Sedative Dependence Additional Comments: 48 years old male admitted on 10/01/18 for alcohol benzo and opiate withdrawal stabilization requests to [place] up methadone dosage collaborative effort to up the methadone in an acceptable level as well as discuss medication assisted treatment program patient insists to leave the detox unit patient is alert speech clearly and coherently steady gait strongly recommend the patient to go to methadone assisted treatment program - Physical Exam Results Vital Signs: Vital Signs Temperature 96.9 F L 10/03/18 13:25 Pulse Rate 97 H 10/03/18 13:25 Respiratory Rate 18 10/03/18 13:25 Blood Pressure 126/84 10/03/18 13:25 O2 Sat by Pulse Oximetry (%) Pertinent Admission Physical Exam Findings: alcohol benzo opiate withdrawal sx Vital Signs Temperature 96.9 F L 10/03/18 13:25 Pulse Rate 97 H 10/03/18 13:25 Respiratory Rate 18 10/03/18 13:25 Blood Pressure 126/84 10/03/18 13:25 O2 Sat by Pulse Oximetry (%) Laboratory Last Values WBC 5.4 K/mm3 (4.0-10.0) 10/02/18 07:00 RBC 4.44 M/mm3 (4.00-5.60) 10/02/18 07:00 Hgb 12.9 GM/dL (11.7-16.9) 10/02/18 07:00 Hct 38.6 % (35.4-49) 10/02/18 07:00 MCV 87.0 fl (80-96) 10/02/18 07:00 MCH 29.0 pg (25.7-33.7) 10/02/18 07:00 MCHC 33.3 g/dl (32.0-35.9) 10/02/18 07:00 RDW 17.5 % (11.9-15.9) H 10/02/18 07:00 Plt Count 213 K/MM3 (134-434) 10/02/18 07:00 MPV 9.7 fl (7.5-11.1) 10/02/18 07:00 Sodium 139 mmol/L (136-145) 10/02/18 07:00 Potassium 4.0 mmol/L (3.5-5.1) 10/02/18 07:00 Chloride 101 mmol/L (98-107) 10/02/18 07:00 Carbon Dioxide 35 mmol/L (21-32) H 10/02/18 07:00 Anion Gap 3 MMOL/L (8-16) L 10/02/18 07:00 BUN 17 mg/dL (7-18) 10/02/18 07:00 Creatinine 0.7 mg/dL (0.55-1.3) 10/02/18 07:00 Est GFR (CKD-EPI)AfAm 130.25 10/02/18 07:00 Est GFR (CKD-EPI)NonAf 112.38 10/02/18 07:00 Random Glucose 83 mg/dL (74-106) 10/02/18 07:00 Calcium 9.0 mg/dL (8.5-10.1) 10/02/18 07:00 Total Bilirubin 0.2 mg/dL (0.2-1) 10/02/18 07:00 AST 11 U/L (15-37) L 10/02/18 07:00 ALT 16 U/L (13-61) 10/02/18 07:00 Alkaline Phosphatase 65 U/L (45-117) 10/02/18 07:00 Total Protein 6.6 g/dl (6.4-8.2) 10/02/18 07:00 Albumin 3.4 g/dl (3.4-5.0) 10/02/18 07:00 RPR Titer Nonreactive (NONREACTIVE) 10/02/18 07:00 lab noted - Treatment Hospital Course: Detox Protocol Followed, Responded well Patient has Accepted a Rehab Referral to: consider methadone maintenance program - Medication Discharge Medications: Ambulatory Orders Quetiapine Fumarate [Seroquel -] 400 mg PO HS 02/24/16 Bupropion HCl [Wellbutrin Xl -] 150 mg PO DAILY #30 tab.sr.24h 04/22/16 Albuterol Sulfate Inhaler - [Ventolin HFA Inhaler -] 2 puff IH Q4H PRN inhaler 03/26/17 Gabapentin 600 mg PO TID 10/02/18 - Diagnosis (1) Alcohol dependence with uncomplicated withdrawal Status: Acute (2) Opioid dependence with withdrawal Status: Acute (3) Sedative, hypnotic or anxiolytic dependence with withdrawal, uncomplicated Status: Acute (4) Weight loss Status: Acute (5) Asthma Status: Chronic Qualifiers: Asthma severity: mild Asthma persistence: intermittent Asthma complication type: with status asthmaticus Qualified Code(s): J45.22 - Mild intermittent asthma with status asthmaticus (6) Hepatitis C Status: Chronic Qualifiers: Viral hepatitis chronicity: chronic Hepatic coma status: without hepatic coma Qualified Code(s): B18.2 - Chronic viral hepatitis C (7) Nicotine dependence Status: Acute Qualifiers: Nicotine product type: cigarettes Substance use status: in withdrawal Qualified Code(s): F17.213 - Nicotine dependence, cigarettes, with withdrawal - AMA Did Patient Leave Against Medical Advice: Yes
[2018-10-04] MEDS ORDERED: METHADONE HCL 5 MG TABLET (FOR DETOX USE ONLY) PO ONE (06:00)
[2018-10-04] MEDS ORDERED: diazePAM 5 MG TABLET PO SCH (06:00)
[2018-10-04] MEDS ORDERED: QUEtiapine FUMARATE 100 MG TABLET (FP) PO SCH (10:00)
== END 2018-10-03 13:51 | disposition left against medical advice (07) | DRG 770 ==
LOC: YASAS 17:02 → Y3N 22:59
PROVIDERS: ADMIT Surgery; ATTEND Surgery
PROC: HZ2ZZZZ Detoxification Services for Substance Abuse Treatment (ICD-10-PCS; principal; 2018-10-01)
DX: F11.23 Opioid dependence with withdrawal (principal); F10.230 Alcohol dependence with withdrawal, uncomplicated; F13.230 Sedative, hypnotic or anxiolytic dependence with withdrawal, uncomplicated; F14.20 Cocaine dependence, uncomplicated; F17.213 Nicotine dependence, cigarettes, with withdrawal; F19.24 Other psychoactive substance dependence with psychoactive substance-induced mood disorder; F25.9 Schizoaffective disorder, unspecified; B18.2 Chronic viral hepatitis C; R63.4 Abnormal weight loss; J45.22 Mild intermittent asthma with status asthmaticus; G47.00 Insomnia, unspecified; M54.5 Low back pain; G89.29 Other chronic pain; Z85.47 Personal history of malignant neoplasm of testis; Z86.69 Personal history of other diseases of the nervous system and sense organs; Z91.19 Patient's noncompliance with other medical treatment and regimen; Z88.8 Allergy status to other drugs, medicaments and biological substances
CPT/HCPCS: 36415; 80053; 85027; 86593

== ENCOUNTER 2020-03-11 15:39 | Inpatient (IN) | payer OTHER ==
[2020-03-11] MEDS ORDERED: ONDANSETRON *ODT* 4 MG TABLET SL PRN (17:13)
[2020-03-11] MEDS ORDERED: NICOTINE POLACRILEX 2 MG GUM BUC PRN (17:13)
[2020-03-11] MEDS ORDERED: MENTHOL/PHENOL 1 EACH UD MM PRN (17:13)
[2020-03-11] MEDS ORDERED: ACETAMINOPHEN 325 MG TABLET (FP) PO PRN ×2 (17:13)
[2020-03-11] MEDS ORDERED: IBUPROFEN 400 MG TABLET (FP) PO PRN (17:13)
[2020-03-11] MEDS ORDERED: MAGNESIUM HYDROX 2400MG/30ML ORAL SUSPENSION 30 ML CUP PO PRN (17:13)
[2020-03-11] MEDS ORDERED: MAGNESIUM CITRATE 300 ML BOTTLE PO PRN (17:13)
[2020-03-11] MEDS ORDERED: MAG HYDROX/AL HYDROX/SIMETH 30 ML UNIT-DOSE CUP PO PRN (17:13)
[2020-03-11] MEDS ORDERED: BISMUTH SUBSALICYLATE 524 MG/30 ML UD PO PRN (17:13)
[2020-03-11] MEDS ORDERED: HYDROCORTISONE 0.5% TOPICAL OINTMENT TUBE TP PRN (17:16)
[2020-03-11] MEDS ORDERED: HYDROCORTISONE 0.5% TOPICAL CREAM 30 GM TUBE TP PRN (17:33)
[2020-03-11] MEDS ORDERED: diphenhydrAMINE HCL 25 MG CAPSULE (FP) PO ONE (17:45)
[2020-03-11 18:08] VITALS: BMI 22.1
[2020-03-11] MEDS ORDERED: ALBUTEROL SO4 HFA INHALER IH PRN (18:21)
[2020-03-11] MEDS: diazePAM 5 MG TABLET PO SCH ×2 (18:33→22:21)
[2020-03-11] MEDS: THIAMINE HCL 100 MG TABLET (FP) PO SCH (22:21)
[2020-03-11] MEDS: BACITRACIN 0.9 GM PACKET TP SCH (22:21)
[2020-03-11] MEDS: cloNIDine HCL 0.1 MG TABLET PO PRN (22:22)
[2020-03-11] MEDS: METHOCARBAMOL 500 MG TABLET PO PRN (22:22)
[2020-03-11] MEDS: MELATONIN 5 MG TABLETS PO PRN (22:22)
[2020-03-12] MEDS: diazePAM 5 MG TABLET PO SCH ×4 (05:46→22:05)
[2020-03-12] MEDS: hydrOXYzine PAMOATE 25 MG CAPSULE (FP) PO PRN ×3 (09:54→22:05)
[2020-03-12] MEDS: PRENATAL VITAMINS W/ FOLIC ACID TABLET (FP) PO SCH (09:54)
[2020-03-12] MEDS: cloNIDine HCL 0.1 MG TABLET PO PRN ×3 (09:54→22:05)
[2020-03-12] MEDS: BACITRACIN 0.9 GM PACKET TP SCH ×2 (09:55→22:05)
[2020-03-12 10:17] LABS: HEMATOCRIT 44.2 % (35.4-49); HEMOGLOBIN 14.4 GM/dL (11.7-16.9); MCH 28.9 pg (25.7-33.7); MCHC 32.6 g/dl (32.0-35.9); MEAN CELL VOLUME 88.7 fl (80-96); PLATELET COUNT 243 K/MM3 (134-434); RBC 4.98 M/mm3 (4.00-5.60); RDW 15.3 % (11.9-15.9); WHITE BLOOD COUNT 8.3 K/mm3 (4.0-10.0)
[2020-03-12 10:44] LABS: POTASSIUM 5.2 mmol/L (3.5-5.1)
[2020-03-12 10:57] LABS: BILIRUBIN,TOTAL 0.4 mg/dL (0.2-1)
[2020-03-12 10:59] LABS: ALBUMIN 3.6 g/dl (3.4-5.0)
[2020-03-12 11:02] LABS: BLOOD UREA NITROGEN 16.3 mg/dL (7-18)
[2020-03-12 11:03] LABS: CALCIUM 9.2 mg/dL (8.5-10.1)
[2020-03-12 11:07] LABS: CREATININE 0.8 mg/dL (0.55-1.3)
[2020-03-12] MEDS: GABAPENTIN 300 MG CAPSULE PO SCH ×2 (13:11→22:05)
[2020-03-12] MEDS: BUPRENORPHINE/NALOXONE 8 MG/2 MG FILM PACKET SL SCH ×2 (13:11→22:06)
[2020-03-12] MEDS: diazePAM 5 MG TABLET PO PRN (13:11)
[2020-03-12] MEDS: METHOCARBAMOL 500 MG TABLET PO PRN (19:22)
[2020-03-12] MEDS ORDERED: QUEtiapine FUMARATE 400 MG TABLET PO SCH (22:00)
[2020-03-12] MEDS ORDERED: MIRTAZAPINE 30 MG TABLET PO SCH (22:00)
[2020-03-12] MEDS: THIAMINE HCL 100 MG TABLET (FP) PO SCH (22:05)
[2020-03-12] MEDS: MELATONIN 5 MG TABLETS PO PRN (22:06)
[2020-03-13] MEDS: diazePAM 5 MG TABLET PO PRN ×2 (03:45→08:55)
[2020-03-13] MEDS: BUPRENORPHINE/NALOXONE 8 MG/2 MG FILM PACKET SL SCH ×2 (05:34→14:59)
[2020-03-13] MEDS: GABAPENTIN 300 MG CAPSULE PO SCH ×2 (05:34→14:59)
[2020-03-13] MEDS: diazePAM 5 MG TABLET PO SCH ×2 (05:34→14:59)
[2020-03-13] MEDS ORDERED: CYCLOBENZAPRINE HCL 10 MG TABLET (FP) PO PRN (09:09)
[2020-03-13] MEDS: hydrOXYzine PAMOATE 25 MG CAPSULE (FP) PO PRN (10:40)
[2020-03-13] MEDS: BACITRACIN 0.9 GM PACKET TP SCH (10:40)
[2020-03-13] MEDS: cloNIDine HCL 0.1 MG TABLET PO PRN (10:41)
[2020-03-13] MEDS: PRENATAL VITAMINS W/ FOLIC ACID TABLET (FP) PO SCH (10:41)
[2020-03-13 12:59] VITALS: BP 129/76; PULSE 69; TEMP 97.1
[2020-03-14] MEDS ORDERED: diazePAM 5 MG TABLET PO SCH (06:00)
[2020-03-15] MEDS ORDERED: diazePAM 5 MG TABLET PO ONE (06:00)
== END 2020-03-13 14:32 | disposition left against medical advice (07) | DRG 770 ==
LOC: YASAS 15:39 → Y3N 17:30
PROVIDERS: ADMIT Allergy & Immunology; ATTEND Allergy & Immunology
PROC: HZ2ZZZZ Detoxification Services for Substance Abuse Treatment (ICD-10-PCS; principal; 2020-03-11)
DX: F10.230 Alcohol dependence with withdrawal, uncomplicated (principal); F11.23 Opioid dependence with withdrawal; F13.230 Sedative, hypnotic or anxiolytic dependence with withdrawal, uncomplicated; F17.213 Nicotine dependence, cigarettes, with withdrawal; F25.9 Schizoaffective disorder, unspecified; F41.9 Anxiety disorder, unspecified; F41.0 Panic disorder [episodic paroxysmal anxiety]; J45.20 Mild intermittent asthma, uncomplicated; M54.5 Low back pain; G89.29 Other chronic pain; B18.2 Chronic viral hepatitis C; L29.8 Other pruritus; Z85.47 Personal history of malignant neoplasm of testis; Z90.79 Acquired absence of other genital organ(s); Z91.5 Personal history of self-harm; Z91.19 Patient's noncompliance with other medical treatment and regimen
CPT/HCPCS: 36415; 80053; 84132; 85027; 86780; C9803; J0735; U0003